=== PATIENT | female | born 1960 | race Caucasian/White ===

== ENCOUNTER 2017-06-03 14:46 | Outpatient (CLI) | payer MEDICARE, MEDICAID ==
--- NOTE | 2017-06-17 14:14 | PFT ---
PATIENT HISTORY: HEIGHT: 63 IN WEIGHT: 152 SMOKER: YES HOW LONG: PACKS PER DAY PRODUCTIVE COUGH: LUNG DISEASE: PHYSICIAN INTERPRETATION FINAL REPORT: Food Service Aide constipation, good effort and cooperation. We are unable to do the DLCO because she could not hold her breath and uncoordinated FVC 2.12 (68%), FEV1 1.57 (68%), FEV1/FVC 0.74. TLC 3.20 (65%), RV 1.82 (100%). There is a reduction to both the FEV1 and the FVC. The ratio is most consistent with restrictive airflow limitation, though there is a significant improvement in the FVC (310 mL, 17%), and FEV1 (260 mL, 20%) following administration of bronchodilator. Total lung capacity is reduced. Residual volume is preserved. Diffusion capacity could not be performed. IMPRESSION: These pulmonary function studies are most consistent with a combination of mild restrictive and obstructive processes resulting in a moderate reduction in expiratory flows. Diffusion capacity could not be performed. There is significant improvement following bronchodilator. Clinical correlation is suggested. Food Service Aide: DANNI Investigator Narcotics: DANNI MCDERMOTT
== END 2017-06-03 14:47 | disposition home or self-care (01) ==
LOC: CP 14:46
PROVIDERS: ATTEND Internal Medicine
DX: J43.9 Emphysema, unspecified (principal)
CPT/HCPCS: 94060; 94727

== ENCOUNTER 2017-11-03 12:28 | Outpatient (CLI) | payer MEDICARE, MEDICAID ==
--- NOTE | 2017-11-03 13:18 | RAD ---
PA AND LATERAL CHEST: HISTORY: Dyspnea. FINDINGS: Heart size and mediastinum are within normal limits. Lungs are clear of infiltrative process. Lungs are mildly hyperexpanded, suggesting COPD type change. Coronary stent is present. IMPRESSION: Chronic lung change. POS: [facility]
== END 2017-11-03 12:29 | disposition home or self-care (01) ==
LOC: RAD 12:28
PROVIDERS: ATTEND Internal Medicine Critical Care Medicine
DX: R06.00 Dyspnea, unspecified (principal)
CPT/HCPCS: 71046

== ENCOUNTER 2020-12-10 09:45 | Outpatient (CLI) | payer MEDICARE, MEDICAID | END 2020-12-10 09:46 | disposition home or self-care (01) | LOC: BICMAMMO 09:45 | PROVIDERS: ATTEND Nurse Practitioner Family | DX: Z12.31 Encounter for screening mammogram for malignant neoplasm of breast (principal); Z80.3 Family history of malignant neoplasm of breast | CPT/HCPCS: 77063; 77067 ==